=== PATIENT | female | born 1990 | race Caucasian/White ===

== ENCOUNTER 2025-01-22 02:45 | Emergency (ER) | payer MEDICAID, SELFPAY ==
[2025-01-22 02:45] VITALS: BMI 56.7
--- NOTE | 2025-01-22 03:56 | PC.NURSE ---
NO ANSWER AT ER LOBBY OR OUTSIDE ER.
--- NOTE | 2025-01-22 03:56 | PC.NURSE ---
NO ANSWER AT ER LOBBY OR OUTSIDE ER.
--- NOTE | 2025-01-22 04:25 | PC.NURSE ---
NO ANSWER AT ER LOBBY OR OUTSIDE ER TO BE SEEN.
== END 2025-01-22 04:56 | disposition left against medical advice (07) ==
LOC: SERX 05:00
PROVIDERS: Emergency Provider Emergency Medicine
DX: Z53.21 Procedure and treatment not carried out due to patient leaving prior to being seen by health care provider (principal)

== ENCOUNTER 2025-06-24 00:40 | Emergency (ER) | payer MEDICAID, SELFPAY ==
[2025-06-24 00:42] VITALS: BMI 60.5
[2025-06-24 01:00] VITALS: BP 152/92; PULSE 84; RESP 18; TEMP 37; O2SAT 97
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
[2025-06-24] MEDS: NAPROXEN 250 MG TABLET 500 MG PO (01:04)
== END 2025-06-24 01:24 | disposition home or self-care (01) ==
LOC: SERX 01:19
PROVIDERS: Emergency Provider Emergency Medicine
DX: T21.02XA Burn of unspecified degree of abdominal wall, initial encounter (principal); X11.8XXA Contact with other hot tap-water, initial encounter
CPT/HCPCS: 99282; A9270